=== PATIENT | female | born 1965 | race Caucasian/White ===

== ENCOUNTER 2017-06-25 08:48 | Outpatient (CLI) | payer OTHER ==
--- NOTE | 2017-06-25 09:30 | SJPRAD ---
TWO VIEWS OF THE CHEST: COMPARISON: 05/06/17. HISTORY: Chronic bronchitis with productive cough. FINDINGS: Two views of the chest show a normal-size cardiomediastinal silhouette. There is stable scarring ov er the left upper lobe. There is no evidence of consolidation, mass, or pleural effusion. IMPRESSION: No evidence of acute cardiopulmonary disease. POS: [facility]
== END 2017-06-25 08:49 | disposition home or self-care (01) ==
LOC: MWLC RAD 08:48
PROVIDERS: ATTEND Family Medicine
DX: J41.1 Mucopurulent chronic bronchitis (principal)

== ENCOUNTER 2017-07-02 21:52 | Emergency (ER) | payer OTHER ==
[2017-07-02 23:42] LABS: #Basophils 0.1 thou/uL (0.0-0.2); #Eosinphils 0.1 thou/uL (0.0-0.7); #Monocytes 0.6 thou/uL (0.11-0.59); #Neutrophils 6.7 thou/uL (1.40-6.50); %Basophils 0.5 % (0.0-1.0); %Eosinophils 1.2 % (0.0-10.0); %Lymphocytes 28.3 % (21.0-51.0); %Monocytes 5.7 % (0.0-10.0); Hematocrit 41.6 % (36.0-47.0); Mean Platelet Volume 6.6 fL (7.4-10.4); White Blood Cell (WBC) Count 10.4 thou/uL (4.8-10.8)
[2017-07-02 23:49] LABS: Anion Gap 14 mmol/L (10-20); BUN (Urea Nitrogen) 9 mg/dL (9.8-20.1); Calc. Creatinine Clearance 0 mL/min (70-130); Calcium 9.9 mg/dL (7.8-10.44); Carbon Dioxide 26 mmol/L (22-29); Chloride 103 mmol/L (98-107); Estimated GFR-MDRD Greater than 90
--- NOTE | 2017-07-03 07:39 | ULT ---
PRELIMINARY REPORT/[facility]/EMERGENCY AFTER HOURS PROCEDURE: EXAM: US Duplex Right Lower Extremity Veins CLINICAL HISTORY: 52 years old, female; Signs and symptoms; Other: Rt foot numbness TECHNIQUE: Real-time ultrasound scan of the veins of the right lower extremity with color Doppler flow, spectral waveform analysis and compression. COMPARISON: No relevant prior studies available. FINDINGS: No visible clot in the included veins. The included veins appear normally compressible. Duplex Doppler evaluation demonstrates flow in the evaluated veins. IMPRESSION: No evidence of acute right lower extremity DVT. Thank you for allowing us to participate in the care of your patient. Dictated and Authenticated by: Frederick Fonseca MD 07/03/2017 12:32 AM Central Time ([place] & [place]) FINAL REPORT EMERGENT AFTER HOURS RIGHT LOWER EXTREMITY VENOUS DUPLEX EXAM: HISTORY: Right lower extremity pain. FINDINGS: Real-time color Doppler evaluation of the right lower extremity was preformed from groin to calf. Th is includes evaluation of the common femoral, superficial and profunda femoral, saphenous, popliteal, and trifurcation veins. This shows a patent deep venous system with normal compressibility and augm entation. IMPRESSION: 1. No evidence of deep vein thrombosis of the right lower extremity. 2. This report is in agreement with the temporary report issued by [facility]. POS: [facility]
== END 2017-07-03 00:57 | disposition home or self-care (01) ==
LOC: ERS 21:52
DX: R20.2 Paresthesia of skin (principal); E03.9 Hypothyroidism, unspecified; I10 Essential (primary) hypertension; F41.9 Anxiety disorder, unspecified; F17.210 Nicotine dependence, cigarettes, uncomplicated
CPT/HCPCS: 80048; 85025; 96360

== ENCOUNTER 2017-08-21 10:20 | Outpatient (CLI) | payer OTHER ==
--- NOTE | 2017-08-21 14:57 | CT ---
CT NECK WITH CONTRAST: Date: 08-21-17 History: 52-year-old female with right upper lobe lung cancer. Follow up abnormal cervical lymphadenopathy fou nd on PET scan January 2017. FINDINGS: There is jaw motion artifact degrading the images of the mandible and submandibular spaces on this CT . There was a region of asymmetrically increased uptake in the area of right palatine tonsil, but the re is no evidence any obvious mass on this CT. Likewise, there are no enlarged cervical lymph nodes, including the supraclavicular lymph nodes, where there was increased uptake on the prior PET. The pha ryngeal mucosal, parapharyngeal, submandibular, electrical superintendent, parotid, carotid, perivertebral, retropha ryngeal, posterior cervical, and visceral, spaces are unremarkable. There is severe degenerative disc disease isolated to the C4-5 level. There is severe degenerative facet disease on the left at C2-3 a nd C5-6. No obvious destructive osseous lesion is identified. IMPRESSION: 1. No evidence of malignancy in the neck. 2. Cervical spondylosis, with severe degenerative disc disease isolated to the 4-5 level, and left si ded facet osteoarthrosis. POS: [facility]
--- NOTE | 2017-08-21 15:32 | CT ---
CT THORAX WITH IV CONTRAST: DATE: 08/21/17. HISTORY: Lung nodule left upper lobe. Abnormal PET scan. Restaging evaluation of lung cancer. The patient h as a history of prior radiation therapy. COMPARISON: PET CT exam on 02/07/[address] thorax on 01/20/17. FINDINGS: Spiculated left upper lobe pulmonary nodule is present. However, the more solid portion of the pulmo nary nodule has diminished in size and the previously seen lucencies are no longer present. This nod ule measures 14 mm x 13 mm on today's exam and on prior PET scan it measured approximately 20 mm x 16 mm. No additional pulmonary nodule or mass is seen. Emphysematous changes are again seen within the lungs. No enlarged lymph nodes are seen by CT size criteria. The previously described lymph nodes at the ba se of the neck on PET scan would be better described on CT scan of the neck. There are no enlarged m ediastinal or hilar lymph nodes on this exam and no enlarged axillary lymph nodes are present. Visualized upper abdomen has a normal CT appearance. Minimal vascular calcifications are seen in the upper abdominal aorta. No thyroid nodule or mass is present. Remote right clavicle fracture is present. No lytic or sclerotic osseous lesion is identified. IMPRESSION: 1. Interval decrease in size of the spiculated left upper lobe pulmonary nodule. The previously not ed central lucencies within this pulmonary nodule are no longer seen. 2. No new pulmonary nodule or mass is identified. 3. No enlarged mediastinal, axillary, or hilar lymph nodes are identified. 4. Please see CT scan of the neck for further details. POS: [facility]
== END 2017-08-21 10:21 | disposition home or self-care (01) ==
LOC: CT 10:20
PROVIDERS: ATTEND Radiology Radiation Oncology
DX: R59.0 Localized enlarged lymph nodes (principal); R91.1 Solitary pulmonary nodule; Z85.118 Personal history of other malignant neoplasm of bronchus and lung
CPT/HCPCS: 70491; 71260

== ENCOUNTER 2018-04-21 11:19 | Emergency (ER) | payer OTHER ==
[2018-04-21 11:52] LABS: #Lymphocytes 1.5 thou/uL (1.20-3.40); #Monocytes 0.3 thou/uL (0.11-0.59); %Basophils 0.4 % (0.0-1.0); %Eosinophils 0.2 % (0.0-10.0); %Lymphocytes 13.5 % (21.0-51.0); %Monocytes 2.8 % (0.0-10.0); %Neutrophils 83.2 % (42.0-75.0); Hemoglobin 13.3 g/dL (12.0-16.0); Mean Corpuscular HGB CONC 33.7 g/dL (32.0-36.0); Mean Corpuscular Hemoglobin 33.5 pg (27.0-31.0); Mean Corpuscular Volume 99.4 fL (78.0-98.0); Mean Platelet Volume 6.8 fL (7.4-10.4); Platelet Count 560 thou/uL (130-400); RBC Distribution Width 11.4 % (11.5-14.5); Red Blood Cell (RBC) Count 3.97 mill/uL (4.20-5.40); White Blood Cell (WBC) Count 10.9 thou/uL (4.8-10.8)
[2018-04-21 12:18] LABS: ALT (SGPT) 9 U/L (8-55); AST (SGOT) 14 U/L (5-34); Albumin 4.2 g/dL (3.5-5.0); Alkaline Phosphatase 167 U/L (40-150); Anion Gap 14 mmol/L (10-20); BUN (Urea Nitrogen) 7 mg/dL (9.8-20.1); Bilirubin, Total 0.3 mg/dL (0.2-1.2); Calc. Creatinine Clearance 0 mL/min (70-130); Calcium 9.5 mg/dL (7.8-10.44); Carbon Dioxide 22 mmol/L (22-29); Chloride 108 mmol/L (98-107); Estimated GFR-MDRD Greater than 90; Globulin 3.8 g/dL (2.4-3.5); Glucose 124 mg/dL (70-105); Lipase 6 U/L (8-78); Potassium 3.1 mmol/L (3.5-5.1); Sodium 141 mmol/L (136-145)
[2018-04-21 13:23] LABS: Bilirubin Negative (Negative); Blood, Urine Negative (Negative); Glucose, Urine (Dipstick) Negative (Negative); Leukocyte Moderate (Negative); Nitrite Positive (Negative); Protein, Urine (Dipstick) 30 mg/dL (Neg-Trace); Specific Gravity, Urine 1.025 (1.005-1.030); Urobilinogen 0.2 mg/dL (0.2-1.0)
[2018-04-21 13:28] LABS: Clarity Cloudy (Clear)
[2018-04-21 13:40] LABS: Bacteria/HPF 4+ HPF (None Seen); Hyaline Casts/LPF NONE SEEN LPF (0-3 Hyaline)
[2018-04-21] MEDS ORDERED: ISOVUE-370 76%-LOCM 1 ML ONE (14:09)
[2018-04-21] MEDS ORDERED: Ondansetron HCl/PF 4 MG/2 ML Vial ONE ×2 (14:13→15:07)
[2018-04-21] MEDS ORDERED: Fentanyl 100 MCG/2 ML VIAL ONE (14:13)
[2018-04-21] MEDS ORDERED: cefTRIAXone\\ROCEPHIN 2 GM VIAL ONE (15:07)
--- NOTE | 2018-04-21 15:13 | CT ---
CT OF THE ABDOMEN AND PELVIS WITH CONTRAST: Date: 04/21/18 COMPARISON: None. HISTORY: Severe abdominal pain with nausea and vomiting since 3:00 a.m.. Patient is in the suprapubic or epiga stric regions. TECHNIQUE: Multiple contiguous axial images were obtained in a CT of the abdomen and pelvis with contrast. Coron al reformats were performed. FINDINGS: Hypodensity adjacent to the falciform ligament likely represents focal fatty infiltration. The gallbl adder, kidneys, adrenal glands, spleen, and pancreas are unremarkable. No free air, free fluid, or stranding changes are seen in the abdomen or pelvis. The reproductive org ans are unremarkable. There is radiodense material in the pelvis which likely represents ingested mat erial within small bowel loops. Small and large bowel are normal in caliber without evidence of obstr uction. The appendix is not definitely seen. No abdominal or pelvic lymphadenopathy seen. Atherosclerotic calcifications are seen in the aorta. Degenerative changes are seen in the spine. The visualized inferior thorax and abdominal wall soft ti ssues are unremarkable. IMPRESSION: No evidence of acute intra-abdominal/pelvic abnormality. POS: [facility]
[2018-04-21] MEDS ORDERED: Metoclopramide HCl 10 MG/2 ML VIAL ONE (16:06)
== END 2018-04-21 16:50 | disposition home or self-care (01) ==
LOC: ERS 11:19
DX: N12 Tubulo-interstitial nephritis, not specified as acute or chronic (principal); R19.7 Diarrhea, unspecified; R10.13 Epigastric pain; E03.9 Hypothyroidism, unspecified; I10 Essential (primary) hypertension; F41.9 Anxiety disorder, unspecified; F17.210 Nicotine dependence, cigarettes, uncomplicated; Z79.891 Long term (current) use of opiate analgesic; Z79.899 Other long term (current) drug therapy
CPT/HCPCS: 36415; 74177; 80053; 81003; 81015; 83605; 83690; 85025; 87077; 87086; 87186; 96361; 96365; 96375; 96376; J0696; J2405; J2765; J3010

== ENCOUNTER 2018-06-11 16:07 | Outpatient (CLI) | payer OTHER ==
--- NOTE | 2018-06-11 19:04 | RAD ---
PA AND LATERAL CHEST: History: Lung nodule. Comparison: Chest CT 08-21-17, two view chest 06-25-17 FINDINGS: There is parenchymal linear opacity in the left upper lung extending through the pleural surface at t he site of the left upper lung nodule seen on the CT of 08-21-17. The nodule is not well defined on lashon in film. There is nipple shadow in the left lower lung. Interstitial markings are increased in both lung but s table. Heart size normal. IMPRESSION: Linear opacity in the left upper lungs seen at the pleural surface. I cannot exclude an associated in flammatory infiltrate. This is at the site of the described nodule on CT of 08-21-17. Suggest repeat CT for more accurate comparison and assessment of the previously noted lung nodule. POS: [facility]
== END 2018-06-11 16:08 | disposition home or self-care (01) ==
LOC: BICRAD 16:07
PROVIDERS: ATTEND Family Medicine
DX: R91.1 Solitary pulmonary nodule (principal); R91.8 Other nonspecific abnormal finding of lung field
CPT/HCPCS: 36415; 71046; 80053; 80061; 81001; 84443; 85025; 87086

== ENCOUNTER 2019-03-12 15:38 | Emergency (ER) | payer OTHER, SELFPAY | END 2019-03-12 16:33 | disposition home or self-care (01) | LOC: ERS 15:38 | DX: Z71.6 Tobacco abuse counseling (principal); F41.9 Anxiety disorder, unspecified; E03.9 Hypothyroidism, unspecified; I10 Essential (primary) hypertension; F17.210 Nicotine dependence, cigarettes, uncomplicated; Z79.899 Other long term (current) drug therapy | CPT/HCPCS: 99281 ==